=== PATIENT | female | born 1990 | race Caucasian/White ===

== ENCOUNTER 2021-01-08 22:39 | Emergency (ER) | payer OTHER ==
[~2021-01-08] VITALS: Ht 157.5 cm; Wt 86.2 kg
--- NOTE | 2021-01-08 22:42 | NUR ---
PT LAKHWINDER HUBER. TAKEN TO BED 12
[2021-01-08 22:49] VITALS: BP 127/71
--- NOTE | 2021-01-09 01:02 | NUR ---
Patient appears to be resting comfortably in bed-- Low fowlers. Vital Signs within normal limits. Respirations even and unlabored. Safety measures are in place, attached to cardiac monitors, and will continue ot monitor patient.
--- NOTE | 2021-01-09 01:58 | NUR ---
patient awake. AAOx4-- slightly confused as to why patient was here but able to answer all questions. Patient then ambulated to the bathroom with a steady gait. ERMD made aware
--- NOTE | 2021-01-09 02:10 | NUR ---
IV removed, catheter intact and site benign. Applied folded 4x4 gauze and tape to stop bleeding.
[2021-01-09 02:15] VITALS: BP 103/68
[2021-01-09 02:39] LABS: BARBITURATE, URINE NEGATIVE ng/ml (NEG <=200); BENZODIAZEPINE, URINE NEGATIVE ng/mL (NEG <=200); COCAINE, URINE NEGATIVE ng/mL (NEG <=300)
[2021-01-09 02:40] LABS: CANNABINOID, URINE NEGATIVE ng/mL (NEG <=50); OPIATE, URINE NEGATIVE ng/mL (NEG <=2000); PHENCYCLIDINE SCREEN,URINE NEGATIVE ng/mL (NEG <=25)
== END 2021-01-09 02:15 | disposition home or self-care (01) ==
LOC: MED 22:39
DX: G93.41 Metabolic encephalopathy (principal)
CPT/HCPCS: 80305; 99283